=== PATIENT | male | born 1970 | race Caucasian/White ===

== ENCOUNTER 2018-06-24 17:57 | Emergency (ER) | payer MEDICARE, MEDICAID ==
[2018-06-24] MEDS ORDERED: Sodium Chloride 0.9% 2.5 ML Syringe FLUSH PRN (17:58)
[2018-06-24] MEDS ORDERED: Aspirin 81 MG Tab.Chew PO ONE (17:58)
[2018-06-24] MEDS ORDERED: Sodium Chloride 0.9% 10 ML Syringe FLUSH PRN (17:58)
--- NOTE | 2018-06-24 18:09 | EDM.PDOC ---
ED HPI GENERAL MEDICAL PROBLEM - General Chief Complaint: Upper Extremity Injury/Pain Stated Complaint: CHEST PAIN AND ARM PAIN Time Seen by Provider: 06/24/18 17:59 Source of Information: Reports: Patient History Limitations: Reports: No Limitations - History of Present Illness INITIAL COMMENTS - FREE TEXT/NARRATIVE: HISTORY AND PHYSICAL: History of present illness: Patient is a 47-year-old male who is developmentally delayed and does have a caregiver who assists in ADLs. Patient today told the caregiver he was having some chest pain across the chest and into the right shoulder. Patient reports that this is been ongoing for approximately 2 weeks but informed the caregiver just today of his symptoms. He denies any fever, chills, shortness of breath or cough. Denies any diaphoresis, syncope or near syncope. Denies any abdominal pain, nausea, vomiting, constipation or dysuria. Patient does have irritable bowel syndrome and routinely has loose stools. Patient denies any recent injury, trauma or falls Review of systems: As per history of present illness and below otherwise all systems reviewed and negative. Past medical history: As per history of present illness and as reviewed below otherwise noncontributory. Surgical history: As per history of present illness and as reviewed below otherwise noncontributory. Social history: See social history for further information Family history: As per history of present illness and as reviewed below otherwise noncontributory. Physical exam: General: Well-developed and well-nourished 47-year-old male. Alert and oriented. Patient is developmentally delayed. Nontoxic appearing and in no acute distress HEENT: Atraumatic, normocephalic, pupils equal and reactive bilaterally, negative for conjunctival pallor or scleral icterus, mucous membranes moist, TMs normal bilaterally, throat clear, neck supple, nontender, trachea midline. No drooling or trismus noted. No meningeal signs. No hot potato voice noted. Lungs: Clear to auscultation, breath sounds equal bilaterally, chest pain is reproducible with palpation to the anterior chest. Heart: S1S2, regular rate and rhythm without overt murmur Abdomen: Soft, nondistended, nontender. Negative for masses or hepatosplenomegaly. Negative for costovertebral tenderness. Pelvis: Stable nontender. Genitourinary: Deferred. Rectal: Deferred. Skin: Intact, warm, dry. No lesions or rashes noted. Extremities: Atraumatic, moves all extremities per self without difficulty or deficits. He does have some spinal fusions which limits his range of motion of his cervical neck side to side. This is a normal variance with no new findings. Neurovascular unremarkable. Neuro: Awake, alert, oriented. Cranial nerves II through XII unremarkable. Cerebellum unremarkable. Motor and sensory unremarkable throughout. Exam nonfocal. Notes: Patient does have been allergy to aspirin and routinely does not take any NSAIDs. I will give him some Tylenol with codeine for his pain as this does appear more muscular in nature. He states the pain is more towards the right shoulder rather than chest. I did offer the patient admission for further evaluation of the initial stated "chest pain". Patient and caregiver decline and state that the pain appears to be mainly right shoulder. Denies any injury, trauma or falls. Caregiver states he is not very physically active and can't imagine him performing any physical activity where he would've strained a muscle. I will give her a sling and encouraged close follow-up with the orthopedic provider. Supportive care measures were reviewed and discussed. Voices understanding and is agreeable to plan of care. Denies any further questions or concerns at this time. Diagnostics: CBC, CMP, troponin, EKG, chest x-ray Therapeutics: Tylenol No. 3, sling Prescription: Tylenol #3 (#15) Impression: Nonspecific chest pain Right shoulder pain Plan: 1. Please use the sling as we discussed for comfort. Rest and ice the area as able. 2. Tylenol and/or ibuprofen as needed for pain management. 3. Follow-up with your primary care provider and oriented the orthopedic provider as we discussed. Return to the ED as needed and as discussed. Definitive disposition and diagnosis as appropriate pending reevaluation and review of above. right shoulder and mid sternal chest Pain Score (Numeric/FACES): 5 - Related Data Allergies Allergy/AdvReac Type Severity Reaction Status Date / Time aspirin Allergy Cannot Verified 06/24/18 18:07 Remember Home Meds: Home Meds Cholecalciferol (Vitamin D3) [Vitamin D3] 5,000 unit PO DAILY 09/28/15 [History] Dicyclomine [Bentyl] 10 mg PO DAILY PRN 09/28/15 [History] Diphenoxylate HCl/Atropine [Diphenoxylate-Atrop 2.5-0.025] 2 tab PO DAILY [History] FLUoxetine HCl [Fluoxetine HCl] 1 tab PO DAILY 09/28/15 [History] Levothyroxine 125 mcg PO ACBREAKFAST 09/28/15 [History] Omeprazole Magnesium [Prilosec Otc] 20 mg PO DAILY 09/28/15 [History] SitaGLIPtin [Januvia] 100 mg PO DAILY 09/28/15 [History] Valproic Acid [Depakene] 500 mg PO BID 09/28/15 [History] atorvaSTATin [Lipitor] 20 mg PO ONETIME 09/28/15 [History] metFORMIN HCl [Metformin HCl] 1,000 mg PO BID 09/28/15 [History] Exenatide Microspheres [Bydureon Pen] 2 mg SQ WEEKLY 06/24/18 [History] Past Medical History HEENT History: Reports: Hard of Hearing Cardiovascular History: Reports: Other (See Below) Other Cardiovascular History: glen valve prolapse Respiratory History: Reports: None Gastrointestinal History: Reports: None, GERD, Irritable Bowel Syndrome Genitourinary History: Reports: UTI, Recurrent Musculoskeletal History: Reports: None, Other (See Below) Other Musculoskeletal History: 51 sx all over the body reported by sister Neurological History: Reports: Seizure Psychiatric History: Reports: Depression, Other (See Below) Other Psychiatric History: down syndrome Endocrine/Metabolic History: Reports: Diabetes, Type II Hematologic History: Reports: Blood Transfusion(s), Other (See Below) Other Hematologic History: von willibrand Oncologic (Cancer) History: Reports: None Dermatologic History: Reports: None - Infectious Disease History Infectious Disease History: Reports: Chicken Pox, Hepatitis C - Past Surgical History HEENT Surgical History: Reports: Other (See Below) GI Surgical History: Reports: Hernia, Abdominal, Hernia, Inguinal Review of Systems - Review of Systems Review Of Systems: ROS reveals no pertinent complaints other than HPI. ED EXAM, GENERAL - Physical Exam Exam: See Below (See dictation) Course - Vital Signs Last Recorded V/S: Last Vital Signs Temp 98.4 F 06/24/18 18:12 Pulse 85 06/24/18 18:12 Resp 20 06/24/18 18:12 BP 126/78 06/24/18 18:12 Pulse Ox 97 06/24/18 18:12 - Orders/Labs/Meds Orders: Active Orders 24 hr Category Date Time Status EKG Documentation Completion [RC] STAT Care 06/24/18 17:58 Active DME for Discharge [COMM] Stat Oth 06/24/18 19:22 Ordered Labs: Laboratory Tests 06/24/18 06/24/18 Range/Units 18:26 18:26 WBC 7.53 (4.0-11.0) K/uL RBC 4.96 (4.50-5.90) M/uL Hgb 14.6 (13.0-17.0) g/dL Hct 44.3 (38.0-50.0) % MCV 89.3 (80.0-98.0) fL MCH 29.4 (27.0-32.0) pg MCHC 33.0 (31.0-37.0) g/dL RDW Std Deviation 52.9 (28.0-62.0) fl RDW Coeff of Ana 16 H (11.0-15.0) % Plt Count 157 (150-400) K/uL MPV 10.40 (7.40-12.00) fL Neut % (Auto) 74.6 (48.0-80.0) % Lymph % (Auto) 16.3 (16.0-40.0) % Wolfe % (Auto) 8.8 (0.0-15.0) % Eos % (Auto) 0.0 (0.0-7.0) % Baso % (Auto) 0.3 (0.0-1.5) % Neut # (Auto) 5.6 (1.4-5.7) K/uL Lymph # (Auto) 1.2 (0.6-2.4) K/uL Wolfe # (Auto) 0.7 (0.0-0.8) K/uL Eos # (Auto) 0.0 (0.0-0.7) K/uL Baso # (Auto) 0.0 (0.0-0.1) K/uL Nucleated RBC % 0.0 /100WBC Nucleated RBCs # 0 K/uL Sodium 141 (136-148) mmol/L Potassium 4.7 (3.5-5.1) mmol/L Chloride 102 (98-107) mmol/L Carbon Dioxide 28.6 (21.0-32.0) mmol/L BUN 10 (7.0-18.0) mg/dL Creatinine 0.9 (0.8-1.3) mg/dL Est Cr Clr Drug Dosing 70.22 mL/min Estimated GFR (MDRD) > 60.0 ml/min Glucose 129 H (74-106) mg/dL Calcium 9.2 (8.5-10.1) mg/dL Total Bilirubin 0.3 (0.2-1.0) mg/dL AST 9 L (15-37) IU/L ALT 14 (14-63) IU/L Alkaline Phosphatase 56 (46-116) U/L Troponin I < 0.050 (0.000-0.056) ng/mL Total Protein 8.1 (6.4-8.2) g/dL Albumin 3.4 (3.4-5.0) g/dL Globulin 4.7 H (2.6-4.0) g/dL Albumin/Globulin Ratio 0.7 L (0.9-1.6) Meds: Medications Discontinued Medications Generic Name Dose Route Start Last Admin Trade Name Freq PRN Reason Stop Dose Admin Acetaminophen/Codeine Phosphate 1 tab 06/24/18 18:10 06/24/18 18:32 Tylenol With Codeine No.3 300mg/30mg PO 06/24/18 18:11 1 tab ONETIME ONE Administration Acetaminophen/Codeine Phosphate 1 tab 06/24/18 19:29 Tylenol With Codeine No.3 300mg/30mg PO 06/24/18 19:30 ONETIME ONE Aspirin 324 mg 06/24/18 17:58 06/24/18 18:26 Aspirin PO 06/24/18 17:59 Not Given ONETIME ONE Sodium Chloride 10 ml 06/24/18 17:58 Saline Flush FLUSH ASDIRECTED PRN Keep Vein Open Sodium Chloride 2.5 ml 06/24/18 17:58 Saline Flush FLUSH ASDIRECTED PRN Keep Vein Open Departure - Departure Time of Disposition: 19:26 Disposition: Home, Self-Care 01 Clinical Impression: Nonspecific chest pain Right shoulder pain Qualifiers: Chronicity: unspecified Qualified Code(s): M25.511 - Pain in right shoulder - Discharge Information Instructions: Shoulder Pain, Nonspecific Chest Pain Referrals: PCP,Unknown [Primary Care Provider] - Forms: ED Department Discharge Additional Instructions: The following information is given to patients seen in the emergency department who are being discharged to home. This information is to outline your options for follow-up care. We provide all patients seen in our emergency department with a follow-up referral. The need for follow-up, as well as the timing and circumstances, are variable depending upon the specifics of your emergency department visit. If you don't have a primary care physician on staff, we will provide you with a referral. We always advise you to contact your personal physician following an emergency department visit to inform them of the circumstance of the visit and for follow-up with them and/or the need for any referrals to a consulting specialist. The emergency department will also refer you to a specialist when appropriate. This referral assures that you have the opportunity for follow-up care with a specialist. All of these measure are taken in an effort to provide you with optimal care, which includes your follow-up. Under all circumstances we always encourage you to contact your private physician who remains a resource for coordinating your care. When calling for follow-up care, please make the office aware that this follow-up is from your recent emergency room visit. If for any reason you are refused follow-up, please contact the [facility] Emergency Department at and asked to speak to the emergency department charge nurse. [facility] Primary Care [address] [place] [address] [id number] [address] [id number] [facility] Specialty Care - Orthopedic Clinic Professional Building [address], [address] [place] [address] 1. Please use the sling as we discussed for comfort. Rest and ice the area as able. 2. Tylenol and/or ibuprofen as needed for pain management. 3. Follow-up with your primary care provider and oriented the orthopedic provider as we discussed. Return to the ED as needed and as discussed. - My Orders Last 24 Hours: My Active Orders 06/24/18 17:58 EKG Documentation Completion [RC] STAT 06/24/18 19:22 DME for Discharge [COMM] Stat - Assessment/Plan Last 24 Hours: My Active Orders 06/24/18 17:58 EKG Documentation Completion [RC] STAT 06/24/18 19:22 DME for Discharge [COMM] Stat
[2018-06-24] MEDS ORDERED: Acetaminophen/Codeine 300-30 MG Tab PO ONE ×2 (18:10→19:29)
[2018-06-24 18:14] VITALS: BP 126/78
[2018-06-24 19:02] LABS: CHLORIDE,CL 102 mmol/L (98-107); SODIUM,NA 141 mmol/L (136-148)
--- NOTE | 2018-06-24 19:45 | CR ---
INDICATION: Pain and shortness of breath. COMPARISON: Report of the previous CT of the chest from 09/28/2015 FINDINGS: PA and lateral views of the chest were obtained. The lungs remain clear. No focal or diffuse infiltrates are present. The previously reported small bilateral pleural effusions are not evident. The heart remains normal in size. The mediastinum is normal in appearance. There are changes of vertebroplasty/kyphoplasty at L1, with bone cement in the anterior superior L1 vertebral body which is moderately wedged. There is mild scoliosis of the cervicothoracic junction convex towards the left. The rest of the osseous structures are unremarkable. IMPRESSION: No active disease seen in the chest. Dictated by Mukul Brothers MD @ Jun 24 2018 7:42PM Signed by Dr. Mukul Brothers @ Jun 24 2018 7:45PM
== END 2018-06-24 19:38 | disposition home or self-care (01) ==
LOC: MW.ED 17:57
DX: R07.9 Chest pain, unspecified (principal); M25.511 Pain in right shoulder; E11.9 Type 2 diabetes mellitus without complications; K21.9 Gastro-esophageal reflux disease without esophagitis; Z88.8 Allergy status to other drugs, medicaments and biological substances; Z79.899 Other long term (current) drug therapy; Z79.84 Long term (current) use of oral hypoglycemic drugs
CPT/HCPCS: 36415; 71046; 80053; 84484; 85025; 93005; 99284; A9270